=== PATIENT | female | born 1940 | race Caucasian/White ===

== ENCOUNTER 2018-12-31 18:56 | Observation (INO) | payer MEDICARE ==
[~2018-12-31] VITALS: Ht 165.1 cm; Wt 71.8 kg
[~2018-12-31 18:56] MED LIST: ALBU90OI INH; ANASTROZOLE5 GM PO; CITA20 PO; Celebrex200 MG PO; ESOM20 PO; FLUSAL1005 INH; FLUT44OIA INH; LEVSOD50; Loperamide2 MG PO; PRAV20; SOLI5 PO; Synthroid25 MCG PO; UBID100; UBID100 PO; VERA180ERB PO; Zofran Odt4 MG SL
[2018-12-31] MEDS ORDERED: GABA300 PO (19:19)
[2018-12-31] MEDS ORDERED: LISI20 PO (19:19)
[2018-12-31 19:39] LABS: BASOPHILS PERCENT AUTO 1 % (0-2); EOSINOPHILS ABSOLUTE AUTO 0.27 K/mm3 (0.00-0.68); EOSINOPHILS PERCENT AUTO 4 % (0-6); Hematocrit 31.8 % (33.0-51.0); Hemoglobin 10.5 g/dL (11.5-16.0); IMMATURE GRAN ABSOLUTE AUTO 0.02 K/mm3 (0.00-0.10); IMMATURE GRAN PERCENT AUTO 0 % (0-1); LYMPHOCYTES ABSOLUTE AUTO 2.05 K/mm3 (0.84-5.20); LYMPHOCYTES PERCENT AUTO 27 % (21-46); MONOCYTES PERCENT AUTO 11 % (4-13); Mean Corpuscular HGB 31.1 pg (26.0-34.0); Mean Corpuscular Volume 94 fL (80-100); NEUTROPHILS ABSOLUTE AUTO 4.38 K/mm3 (1.96-9.15); NEUTROPHILS PERCENT AUTO 58 % (41-73); Platelet Count 233 K/mm3 (150-400); RDW Coefficient Variation 12.6 % (11.7-14.2); RDW Standard Deviation 43.8 fL (35.1-46.3); Red Blood Cell Count 3.38 M/mm3 (3.80-5.20); White Blood Cell Count 7.62 K/mm3 (4.00-11.30)
[2018-12-31 19:54] LABS: Alanine Aminotransfer (ALT/SGP 18 U/L (12-78); Albumin, Blood 3.6 g/dL (3.4-5.0); Alk Phos 89 U/L (50-136); Anion Gap 7 mmol/L (6-16); Aspartate Aminotrans (AST/SGOT 20 U/L (12-37); Bilirubin, Total 0.3 mg/dL (0.1-1.0); Blood Urea Nitrogen 34 mg/dL (8-24); Bun/Creatinine Ratio 17.8 (12.0-20.0); CO2, Blood 20 mmol/L (21-32); Calcium, Blood 9.1 mg/dL (8.5-10.1); Chloride, Blood 111 mmol/L (98-108); Creatinine, Blood 1.91 mg/dL (0.40-1.00); Free Thyroxine 1.09 ng/dL (0.70-1.60); Globulin, Blood 3.5 g/dL (2.2-4.0); Glomerular Filtration Rate 27 (60-); Glucose, Blood 91 mg/dL (70-99); Potassium, Blood 4.8 mmol/L (3.5-5.5); Sodium, Blood 138 mmol/L (136-145); Total Protein, Blood 7.1 g/dL (6.4-8.2); Troponin I <0.015 ng/mL (0.000-0.040)
[2018-12-31 19:59] LABS: Triiodothyronine, Free 2.08 pg/mL (2.18-3.98)
[2018-12-31 20:21] LABS: Source, Urine Clean Catch
[2018-12-31 20:25] LABS: Bilirubin, Urine Neg (Neg); Blood, Urine 1+ (Neg); Glucose Qualitative, Urine Neg (Neg); Ketones, Urine 2+ (Neg); Leukocyte Esterase, Urine 3+ (Neg); Nitrite, Urine Neg (Neg); Protein, Urine Neg (Neg); Urobilinogen, Urine NORM (Normal)
[2018-12-31 20:31] LABS: Appearance, Urine Hazy (Clear); Color, Urine Yellow (P-Yellow)
[2018-12-31 20:33] LABS: Bacteria Many /hpf; Red Blood Cells, Urine Not Seen /hpf (0-2); Squamous Epithelial Cells Mod /hpf (Few)
[2018-12-31] MEDS ORDERED: ANAS1 PO (20:58)
[2018-12-31] MEDS ORDERED: Loratadine10 MG PO (20:58)
[2018-12-31] MEDS ORDERED: OMEPRAZOLE20 MG PO (20:58)
--- NOTE | 2019-01-01 04:39 | NUR ---
12/31/18 2200 PT ADMITTED TO ROOM 355 PER CART FROM ER.
--- NOTE | 2019-01-01 04:41 | NUR ---
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
[2019-01-01 05:51] LABS: Albumin, Blood 2.8 g/dL (3.4-5.0); Anion Gap 6 mmol/L (6-16); Blood Urea Nitrogen 36 mg/dL (8-24); Bun/Creatinine Ratio 22.4 (12.0-20.0); CO2, Blood 25 mmol/L (21-32); Calcium, Blood 8.5 mg/dL (8.5-10.1); Chloride, Blood 112 mmol/L (98-108); Creatinine, Blood 1.61 mg/dL (0.40-1.00); Glomerular Filtration Rate 33 (60-); Glucose, Blood 97 mg/dL (70-99); Phosphorus, Blood 4.6 mg/dL (2.5-4.9); Potassium, Blood 4.5 mmol/L (3.5-5.5); Sodium, Blood 143 mmol/L (136-145)
--- NOTE | 2019-01-01 11:03 | NUR ---
Spiritual care visit attempted. Upon receiving a spiritual care referral, I visited patient. I opened the door to patient's room and stated who I am and the department I am from and patient forcefully said, "No thank you." I departed from the doorway.
[2019-01-01] MEDS ORDERED: VERA180ER PO (15:10)
--- NOTE | 2019-01-01 15:54 | NUR ---
DISCHARGE SUMMARY PT DISCHARGED TO HOME. 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 PT EDUCATED ON HOME MEDICATIONS, CURRENT ILLNESS AND INSTRUCTED TO FOLLOW UP WITH PCP WITHIN 7-10 DAYS. THIS NURSE CALLED TO SCHEDULE PT'S FOLLOW UP APPOINTMENT. PT IS AN [facility] PT AND NUBIA ESPINOZA WILL BE CALLING HER TO SCHEDULE THIS APPOINTMENT. IV DC'D AND BELONGINGS RETURNED.
== END 2019-01-01 15:55 | disposition home or self-care (01) ==
LOC: ER 18:56 → MEDS 18:57 → ER 21:05 → MEDS 22:17 → ENPENDDIS 01-01 14:38 → MEDS 01-01 15:55
PROVIDERS: Emergency Medicine; Nurse Practitioner Acute Care; ADMIT Internal Medicine
DX: I47.1 Supraventricular tachycardia (principal); N17.9 Acute kidney failure, unspecified; J45.909 Unspecified asthma, uncomplicated; E03.9 Hypothyroidism, unspecified; K21.9 Gastro-esophageal reflux disease without esophagitis; Z87.891 Personal history of nicotine dependence; Z88.5 Allergy status to narcotic agent; Z79.899 Other long term (current) drug therapy
CPT/HCPCS: 36415; 71046; 80053; 80069; 81001; 84439; 84443; 84481; 84484; 85025; 87086; 93005; 93010; 96361; 96374; 99285-25; G0378; J0153; J7030

== ENCOUNTER → 2020-03-25 | Outpatient (CLI) | payer MEDICARE ==
[~2020-03-25] MED LIST changes: +ANAS1 PO; +GABA300 PO; +LISI20 PO; +Loratadine10 MG PO; +OMEPRAZOLE20 MG PO; +VERA180ER PO
== END ==
LOC: PLD 15:25 → LAB SHORT 15:25
DX: N39.0 Urinary tract infection, site not specified (principal)
CPT/HCPCS: 87077; 87086; 87186

== ENCOUNTER → 2020-05-02 | Outpatient (CLI) | payer MEDICARE | LOC: PLD 14:14 → LAB SHORT 14:14 → LAB EV 14:14 | DX: R30.9 Painful micturition, unspecified (principal) | CPT/HCPCS: 87077; 87086; 87186 ==

== ENCOUNTER → 2021-01-17 | Outpatient (CLI) | payer OTHER ==
[2021-01-18 09:42] LABS: Candida species (DNA Probe) Negative (NEGATIVE); G. vaginalis (DNA Probe) Positive (NEGATIVE); T. vaginalis (DNA Probe) Negative (NEGATIVE)
== END | disposition home or self-care (01) ==
LOC: LAB SHORT 14:57
PROVIDERS: Obstetrics & Gynecology
DX: N76.0 Acute vaginitis (principal)
CPT/HCPCS: 87480; 87510; 87660

== ENCOUNTER → 2021-01-31 | Outpatient (CLI) | payer OTHER ==
[2021-01-31 16:47] LABS: Source, Urine Clean Catch
[2021-01-31 19:00] LABS: Appearance, Urine Hazy (Clear); Bilirubin, Urine Neg (Neg); Blood, Urine 2+ (Neg); Color, Urine Yellow (P-Yellow); Glucose Qualitative, Urine Neg (Neg); Ketones, Urine Neg (Neg); Leukocyte Esterase, Urine 3+ (Neg); Nitrite, Urine Neg (Neg); Protein, Urine 1+ (Neg); Specific Gravity, Urine 1.015 (1.003-1.022); Urobilinogen, Urine NORM (Normal)
[2021-01-31 19:20] LABS: Red Blood Cells, Urine 0-2 /hpf (0-2)
[2021-01-31 19:21] LABS: Bacteria Mod /hpf; Mucus Light (0-Heavy); Squamous Epithelial Cells Many /hpf (Few)
== END ==
LOC: LAB 16:45 → LAB SHORT 16:45
PROVIDERS: Obstetrics & Gynecology
DX: R30.9 Painful micturition, unspecified (principal)
CPT/HCPCS: 81001; 87086

== ENCOUNTER 2021-06-19 06:35 | Day surgery (SDC) | payer OTHER ==
[~2021-06-19] VITALS: Ht 162.6 cm; Wt 62.7 kg
--- NOTE | 2021-06-19 07:37 | NUR ---
06/19/21 0737 Marium Stanley PT HAD BREAST CANCER ON THE LEFT SIDE AND STATES OK TO USE LEFT ARM FOR BP.
--- NOTE | 2021-06-19 08:03 | NUR ---
06/19/21 0803 Chavo Banks 0.20MG EPI ADDED TO 20 ML'S 2% LIDOCAINE TO ACHIEVE SOLUTION OF 1:100,000. 10 ML'S INJ INTO OPSITE AT 0757.
== END 2021-06-19 08:51 | disposition home or self-care (01) ==
LOC: ORSCSDS 06:35
PROVIDERS: Orthopaedic Surgery
PROC: 01N50ZZ Release Median Nerve, Open Approach (ICD-10-PCS; principal; 2021-06-19 08:00)
DX: G56.03 Carpal tunnel syndrome, bilateral upper limbs (principal); I10 Essential (primary) hypertension; K21.9 Gastro-esophageal reflux disease without esophagitis; J45.909 Unspecified asthma, uncomplicated; Z87.891 Personal history of nicotine dependence; Z79.899 Other long term (current) drug therapy
CPT/HCPCS: J0171; J1100; J2250; J2405; J2704

== ENCOUNTER 2021-10-16 07:51 | Day surgery (SDC) | payer OTHER ==
[~2021-10-16] VITALS: Ht 162.6 cm; Wt 65.0 kg
--- NOTE | 2021-10-16 08:44 | NUR ---
10/16/21 0844 DON NOLASCO 0.1MG OF EPI (1MG/1ML) ADDED TO 10MLS OF LIDOCAINE 1% TO CREATE A LOCAL SOLUTION OF LIDOCAINE 1% WITH EPI 1:100,000. 10MLS OF LOCAL INJECTED AT START OF CASE BY ALCIDES KYLE.
== END 2021-10-16 09:21 | disposition home or self-care (01) ==
LOC: ORSCSDS 07:51
PROVIDERS: Orthopaedic Surgery
PROC: 01N50ZZ Release Median Nerve, Open Approach (ICD-10-PCS; principal; 2021-10-16 09:00)
DX: G56.03 Carpal tunnel syndrome, bilateral upper limbs (principal); E03.9 Hypothyroidism, unspecified; E78.5 Hyperlipidemia, unspecified; I10 Essential (primary) hypertension; I47.1 Supraventricular tachycardia; G25.81 Restless legs syndrome; N18.9 Chronic kidney disease, unspecified; K21.9 Gastro-esophageal reflux disease without esophagitis; J45.909 Unspecified asthma, uncomplicated; Z79.899 Other long term (current) drug therapy
CPT/HCPCS: J0171; J0690; J1100; J2250; J2405; J2704; J3010; J7120

== ENCOUNTER → 2022-03-05 | Outpatient (CLI) | payer OTHER ==
[2022-03-05 16:08] LABS: Alanine Aminotransfer (ALT/SGP 18 U/L (12-78); Albumin, Blood 3.4 g/dL (3.4-5.0); Albumin/Globulin Ratio 0.8 (0.8-1.8); Alk Phos 92 U/L (50-136); Anion Gap 3 mmol/L (6-16); Aspartate Aminotrans (AST/SGOT 22 U/L (12-37); Bilirubin, Total 0.4 mg/dL (0.1-1.0); Blood Urea Nitrogen 21 mg/dL (8-24); Bun/Creatinine Ratio 22.5 (12.0-20.0); CHOL/HDL RATIO 2.8; CO2, Blood 29 mmol/L (21-32); Calcium, Blood 8.8 mg/dL (8.5-10.1); Chloride, Blood 109 mmol/L (98-108); Cholesterol 163 mg/dL (50-200); Creatinine, Blood 0.94 mg/dL (0.40-1.00); Glomerular Filtration Rate 62 (60-); Glucose, Blood 81 mg/dL (70-99); HDL Cholesterol 59 mg/dL (>39); LDL/HDL RATIO 1.2; Low Density Lipoprotein Chol 70 mg/dL (0-110); Potassium, Blood 4.5 mmol/L (3.5-5.5); Sodium, Blood 141 mmol/L (136-145); Total Protein, Blood 7.4 g/dL (6.4-8.2); Triglycerides 171 mg/dL (30-160); Very Low Density Lipoprot Chol 34 mg/dL (6-32)
== END | disposition home or self-care (01) ==
LOC: LAB SHORT 13:27 → LAB 13:27
PROVIDERS: Family Medicine
DX: Z13.6 Encounter for screening for cardiovascular disorders (principal); E03.9 Hypothyroidism, unspecified; N18.31 Chronic kidney disease, stage 3a
CPT/HCPCS: 36415; 80053; 80061; 84443

== ENCOUNTER 2022-06-26 12:23 | Day surgery (SDC) | payer OTHER ==
[~2022-06-26] VITALS: Ht 162.6 cm; Wt 67.2 kg
[2022-06-26] MEDS ORDERED: OMEP20ER (12:44)
[2022-06-26] MEDS ORDERED: OXYB5 (12:45)
== END 2022-06-26 15:28 | disposition home or self-care (01) ==
LOC: ORSCSDS 12:23
PROVIDERS: Internal Medicine Gastroenterology
PROC: 0DB58ZX Excision of Esophagus, Via Natural or Artificial Opening Endoscopic, Diagnostic (ICD-10-PCS; principal; 2022-06-26 13:45)
PROC: 0DBP8ZX Excision of Rectum, Via Natural or Artificial Opening Endoscopic, Diagnostic (ICD-10-PCS; principal; 2022-06-26 13:45)
PROC: 0DBM8ZX Excision of Descending Colon, Via Natural or Artificial Opening Endoscopic, Diagnostic (ICD-10-PCS; principal; 2022-06-26 13:45)
DX: Z12.11 Encounter for screening for malignant neoplasm of colon (principal); Z80.0 Family history of malignant neoplasm of digestive organs; D12.4 Benign neoplasm of descending colon; D12.8 Benign neoplasm of rectum; K21.00 Gastro-esophageal reflux disease with esophagitis, without bleeding; Z86.010 Personal history of colon polyps; R13.14 Dysphagia, pharyngoesophageal phase; K44.9 Diaphragmatic hernia without obstruction or gangrene; K57.30 Diverticulosis of large intestine without perforation or abscess without bleeding; Z79.899 Other long term (current) drug therapy; Z87.891 Personal history of nicotine dependence; Z85.3 Personal history of malignant neoplasm of breast
CPT/HCPCS: 88305; J2001; J2704; J7120